=== PATIENT | female | born 1980 | race Caucasian/White ===

== ENCOUNTER → 2019-06-24 | Outpatient (CLI) | payer OTHER | LOC: M.RAD 09:00 | DX: Z12.31 Encounter for screening mammogram for malignant neoplasm of breast (principal) ==

== ENCOUNTER → 2019-07-01 | Outpatient (CLI) | payer OTHER ==
--- NOTE | 2019-07-05 17:06 | PATH ---
[address] [address] PATHOLOGY RPT PROCEDURE Name: LEXII AYOUB Room: [facility] Latrice.Martita.#: [id number] Admission: 07/01/19 Date of : 76 Discharge: Report #: [id number] Path Case #: [id number] [facility] Accession Number: [id number] . 01 Material submitted: . breast - RIGHT BREAST MASS, 9:30, 5CFN. Modifiers: right, 9:00 . 01 Clinical history: . Right breast mass, 9:30 o'clock, 5 cm from nipple 1.20 x 1.58 x 1.51 cm . 02 Diagnosis: Right breast mass, 9:30, 5 cm from nipple, image guided core biopsy: - INFILTRATING LOBULAR CARCINOMA, INTERMEDIATE GRADE, SPANNING 13 MM ASSOCIATED WITH LOBULAR CARCINOMA IN SITU (LCIS), LOW GRADE. SEE COMMENT. . (EMILY:pit; 07/05/2019) QTP/07/05/2019 . 02 Comment: Specimen type: Image guided core biopsy Tumor site: Right breast, 9:30, 5 cm from nipple Tumor quantitation: Approximately 75% of submitted tissues Histologic type: Lobular carcinoma Histologic grade: Intermediate (II of III) Tubules, nuclei and mitoses: 3, 2, 1 LVSI: Not identified Microcalcifications: Identified in non-neoplastic tissues Markers: Breast tumor profile pending Block: A3 . The tumor infiltrates predominantly as nests with scattered areas of more classic lobular infiltration of single cells and "Australian filing", highlighted by properly controlled keratin AE1/AE3 stain performed on A1. An E-cadherin IHC also performed on A1 shows the infiltrating tumor cells as well as LCIS to be negative. No ductal carcinoma in situ is seen. Breast tumor profile studies are pending on A3 and will be the subject of an addendum report. Reviewed with Dr. Max Vazquez who agrees with the diagnosis. Sharron Maria ([facility] Breast Navigator) notified at approximately 1045 on 07/05/2019. (EMILY:pit; 07/05/2019) . 02 Electronically signed: . Carl Adorno MD, Pathologist NPI- [id number] . 01 Gross description: . The specimen is received in formalin, labeled "Lexii Ayoub, [place] [address] PATHOLOGY RPT PROCEDURE Name: LEXII AYOUB Room: [facility]#: [id number] Admission: 07/01/19 Date of : 76 Discharge: Report #: [id number] Path Case #: [id number] mass BX", are several fibrofatty cores and its fragments measuring 2.7 x 2.4 x 0.8 cm in aggregate. The specimen is entirely submitted in A1-A3. Specimen excised at: 1157 on 07/01/19, placed in formalin at: 1201 on 07/01/19, formalin exposure: Approximately 11 hours and 39 minutes (SWS; 07/01/2019) SHS/ . 02 Pathologist provided ICD-10: C50.911, D05.11 . 02 CPT . 958569, Z69432, L80160 Specimen Comment: A courtesy copy of this report has been sent to Specimen Comment: [phone], , , . Specimen Comment: Report sent to DR LEIJA,DR HER,DR LOYD / DR MARIA Performed at: 01 [facility] [address], [place], [place] [id number] MD Francisco Daugherty MD Phone: [phone] Performed at: 02 [facility] [address], [place], [place] [id number] MD Carl Adorno MD Phone: [phone]
== END | disposition home or self-care (01) ==
LOC: M.ULTRA 09:26
DX: C50.911 Malignant neoplasm of unspecified site of right female breast (principal)

== ENCOUNTER → 2019-07-13 | Outpatient (CLI) | payer OTHER | LOC: M.MRI 16:08 | DX: N63.11 Unspecified lump in the right breast, upper outer quadrant (principal); D05.01 Lobular carcinoma in situ of right breast ==

== ENCOUNTER → 2019-08-03 | Day surgery (SDC) | payer OTHER ==
[~2019-08-03] MED LIST: NORCO 5-325 TA1 EAC1 PO
[2019-08-03 06:36] LABS: HEMATOCRIT 40.6 % (37.0-47.0); HEMOGLOBIN 13.6 gm/dL (12.0-15.0)
--- NOTE | 2019-08-09 17:06 | PATH ---
[address] [address] PATHOLOGY RPT PROCEDURE Name: LEXII AYOUB Room: [facility].#: [id number] Admission: 08/03/19 Date of : 76 Discharge: Report #: [id number] Path Case #: [id number] [facility] Accession Number: [id number] . 01 Material submitted: . PART A: breast - RIGHT BREAST CANCER; LONG LATERAL, SHORT SUPERIOR, DOUBLE DEEP. Modifiers: right PART B: breast - RIGHT BREAST NEW MEDIAL MARGIN; STITCH JOSÉ NEW MARGIN. Modifiers: right, medial PART C: breast - RIGHT BREAST NEW INFERIOR MARGIN; STITCH JOSÉ NEW MARGIN. Modifiers: right, inferior PART D: breast - RIGHT BREAST NEW LATERAL MARGIN; STITCH JOSÉ NEW MARGIN. Modifiers: right, superior PART E: breast - RIGHT BREAST NEW SUPERIOR MARGIN; STITCH JOSÉ NEW MARGIN. Modifiers: right, superior PART F: breast - RIGHT BREAST NEW POSTERIOR MARGIN; STITCH JOSÉ NEW MARGIN. Modifiers: right, posterior PART G: breast - RIGHT BREAST NEW ANTERIOR MARGIN; STITCH JOSÉ NEW MARGIN. Modifiers: right, anterior PART H: lymph node - RIGHT AXILLARY LYMPH NODE - NOT HOT, NOT BLUE. Modifiers: right, axillary tail PART I: lymph node - RIGHT AXILLARY SENTINEL NODE #1-HOT,BLUE, [address]. Modifiers: right, axillary tail PART J: lymph node - RIGHT AXILLARY SENTINEL NODE #2-HOT,NOT BLUE, [address]. Modifiers: right, axillary tail PART K: lymph node - RIGHT AXILLARY SENTINEL NODE #3-NOT HOT,BLUE. Modifiers: right, axillary tail PART L: lymph node - RIGHT AXILLARY SENTINEL NODE #4 - HOT, BLUE - TOO HIGH TO COUNT. Modifiers: right . 01 Clinical history: . Malignant neoplasm of upper outer quadrant of right female breast . 02 Diagnosis: A. Right breast cancer: - INFILTRATING LOBULAR CARCINOMA, INTERMEDIATE GRADE, SPANNING 20 MM, ADJACENT TO CHANGES OF PRIOR BIOPSY (INCLUDING METALLIC CLIP), WITH ALL MARGINS FREE OF INVOLVEMENT AND CLOSEST (SUPERIOR NEAR DEEP), 2 MM AWAY. SEE COMMENT. . B. Right breast new medial margin: - Benign breast tissue, negative for atypia. . C. Right breast new inferior margin: - Benign breast tissue with usual ductal epithelial hyperplasia and cystic apocrine change, negative for atypia. . D. Right breast new lateral margin: - Benign breast tissue, negative [place] [address] PATHOLOGY RPT PROCEDURE Name: LEXII AYOUB Room: [facility] M.R.#: [id number] Admission: 08/03/19 Date of : 76 Discharge: Report #: [id number] Path Case #: [id number] . E. Right breast new superior margin: - Benign breast tissue, negative for atypia. See comment. . F. Right breast new posterior margin: - Benign breast tissue with focal atypical lobular hyperplasia. . G. Right breast new anterior margin: - Benign breast tissue with usual ductal epithelial hyperplasia, negative for atypia. . H. Right axillary node (not hot, not blue): - MICROMETASTASIS OF LOBULAR CARCINOMA INVOLVING ONE LYMPH NODE. SEE COMMENT. . I. Right axillary sentinel node #1 (hot, blue, [address]): - MICROMETASTASIS OF LOBULAR CARCINOMA INVOLVING ONE OF THREE LYMPH NODES. SEE COMMENT. . J. Right axillary sentinel node #2 (hot, not blue, [address]): - One benign lymph node. See comment. . K. Right axillary sentinel node #3 (not hot, blue): - Benign fat and prominent blood vessel without lymph node identified. See comment. . L. Right axillary sentinel node #4 (hot, blue, too high to count): - One benign lymph node. See comment. (EMILY:[facility]; 08/09/2019) [facility] 08/09/2019 0739 Local . 02 Comment: Surgical Pathology Cancer Case Summary Protocol posting date: November 2017 . INVASIVE CARCINOMA OF THE BREAST: Specimen Identification Procedure ___ Not specified Specimen Laterality ___ Right + Tumor Site: Invasive Carcinoma + ___ Not specified Tumor Size ___ Greatest dimension of largest invasive focus >1 mm: 20 mm + Additional dimensions: 10 x 8 mm Histologic Type ___ Invasive lobular carcinoma [address] [address] PATHOLOGY RPT PROCEDURE Name: LEXII AYOUB Room: [facility]#: [id number] Admission: 08/03/19 Date of : 76 Discharge: Report #: [id number] Path Case #: [id number] Histologic Grade (Adrienne Histologic Score) Glandular (Acinar)/Tubular Differentiation ___ Score 3 (<10% of tumor area forming glandular/tubular structures) Nuclear Pleomorphism ___ Score 2 (cells larger than normal with open vesicular nuclei, visible nucleoli, and moderate variability in both size and shape) Mitotic Rate ___ Score 1 (< or = 3 mitoses per mm2) Overall Grade ___ Grade 2 (scores of 6 or 7) + Tumor Focality + ___ Single focus of invasive carcinoma Ductal Carcinoma In Situ (DCIS) ___ Not identified + Lobular Carcinoma In Situ (LCIS) + ___ Present Margins Invasive Carcinoma Margins ___ Uninvolved by invasive carcinoma Distance from closest margin: 10 mm (specimen A + specimen E - see comment) Specify closest margin: Superior near deep DCIS Margins ___ No DCIS in specimen Regional Lymph Nodes ___ Involved by tumor cells Number of Lymph Nodes with Micrometastases (>0.2 mm to 2 mm and/or >200 cells): 2 + Size of Largest Metastatic Deposit: 5 mm in dispersed pattern + Extranodal Extension: + ___ Not identified Number of Lymph Nodes Examined: 6 Number of [place] Nodes Examined: 5 Treatment Effect ___ No known presurgical therapy + Lymphovascular Invasion + ___ Not identified + Dermal Lymphovascular Invasion + ___ No skin present . PATHOLOGIC STAGE CLASSIFICATION (pTNM, AJCC 8th EDITION) Primary Tumor (Invasive Carcinoma) (pT) ___ pT1c: Tumor >10 mm but < or = 20 mm in greatest dimension Regional Lymph Nodes (pN) Modifier ___ (sn): [place] node(s) evaluated. Category (pN) ___ pN1mi: Micrometastases (approximately 200 cells, larger than 0.2 mm, but none larger than 2.0 mm) [place] [address] PATHOLOGY RPT PROCEDURE Name: LEXII AYOUB Room: [facility].#: [id number] Admission: 08/03/19 Date of : 76 Discharge: Report #: [id number] Path Case #: [id number] + Ancillary Studies Estrogen receptor 95%, progesterone receptor 90%, Her2 1+/not over expressed, Ki-67 15% ([id number] A3) + Microcalcifications + ___ Identified in non-neoplastic tissue + Clinical History + The current clinical/radiologic breast findings for which this surgery is performed include: + ___ Previous right breast mass 9:30, 5 cm from nipple image guided core biopsy showing infiltrating lobular carcinoma, intermediate grade, spanning 13 mm associated with lobular carcinoma in situ, low-grade ([id number]). . The closest final approach to a surgical margin (superior near posterior) is given as 10 mm in the synoptic data based on its approach in the specimen A sample plus the additional right breast new superior marginal tissue (E). Properly controlled keratin AE1/AE3 stains are performed on each of H1, I1, J1, K1, and L1, and in both specimen H and I, there is a dispersed pattern of metastatic tumor cells confined to both lymph nodes and spanning 4 mm in H and 5 mm in I. Classification of both of these foci are debatable to instead represent macrometastases (in which it would be staged as pN1a), however they are classified as micrometastases because of the dispersed patterns. . A8, H1, and I1 reviewed with Dr. Melly Donovan who agrees with the diagnosis. . (EMILY:pit; 08/09/2019) . 02 Electronically signed: . Carl Adorno MD, Pathologist NPI- [id number] . 01 Gross description: . A. The specimen is received in formalin, labeled "Lexii Ayoub, right breast cancer; long lateral, short superior, double deep", is a 14 g, oriented, fibroadipose tissue with sutures: long = lateral, short = superior and double = deep. There is a needle wire in situ from inferior/deep and protruding out of lateral/superior aspect. The specimen measures medial to lateral = 5.0 cm, superior to inferior = 2.6 cm and superficial to deep = 2.8 cm. The specimen is inked as follows: Superior = red, inferior = green, medial = orange, lateral = yellow, superficial = blue and deep = black. The specimen is a serially sectioned from medial to lateral into 14 slices. (Slice #1 = medial and slice #14 = lateral margins) to reveal a fairly circumscribed whittaker-white firm mass approximately measuring 2.0 x 1.0 x 0.8 cm (slice #6 to slice #10) and a metallic marker in slice #8. The mass is surrounded by whittaker-white fibrous tissue. The mass is 0.3 cm away from superficial (slice #7), 0.2 cm from deep (slice #8), abuts the superior (slice #7), 0.2 cm [place] [address] PATHOLOGY RPT PROCEDURE Name: LEXII AYOUB Room: [facility].R.#: [id number] Admission: 08/03/19 Date of : 76 Discharge: Report #: [id number] Path Case #: [id number] (slice 9) and greater than 1.5 cm from medial and lateral margins. The remaining parenchyma is yellow and fatty, with whittaker-white fibrous tissue in the ratio of approximately 60:40. Entirely submitted as follows: A1. Slice #1, medial margin, perpendicular sectioned. A2-A3. Slice #2 and slice #3 respectively. A4. Slice #4, medial most aspect of fibrous tissue. A5. Slice #5, uninvolved slice adjacent to mass on medial aspect. A6. Slice #6, medial most aspect of mass. A7. Slice #7, mass to closest superior and superficial margins. A8. Slice #8, mass to closest deep margin and slice with metallic marker. A9. Slice #9, mass. A10. Slice #10, mass to closest inferior margin and lateral most aspect of mass and fibrous tissue. A11. Slice #11, uninvolved slice adjacent to mass on the lateral aspect. A12-A13. Slice #12 and slice #13, respectively. A14. Slice #14, lateral margin, perpendicular sectioned. . Specimen excised at: 1055 on 08/03/19, placed in formalin at: 1118 on 08/03/19, formalin exposure: Approximately 36 hours and at 12 minutes. . B. The specimen is received in formalin, labeled "Valerie, Lexii, right breast new medial margin, stitch josé new margin", is an oriented yellow lobulated adipose tissue measuring 3.0 x 1.8 x 0.7 cm with a suture designated as new medial margin. The new margin is inked blue and the specimen is serially sectioned perpendicular to the new margin to show a predominantly yellow lobulated cut surface. The specimen is entirely submitted in B1-B3. Specimen excised at: 1104 on 08/03/19, placed in formalin at: 1107 on 08/03/19, formalin exposure: Approximately 36 hours and 23 minutes. . C. The specimen is received in formalin, labeled "Lexii Ayoub, right breast new inferior margin, stitch josé new margin", is an oriented yellow lobulated adipose tissue measuring 2.2 x 1.4 x 0.7 cm with a suture designated as new inferior margin. The new margin is inked blue and the specimen is serially sectioned perpendicular to the new margin to show a yellow lobulated cut surface. The specimen is entirely submitted in C1-C2. Specimen excised at: 1105 on 08/03/19, placed in formalin at: 1107 on 08/03/19, formalin exposure: Approximately 36 hours and 23 minutes. . D. The specimen is received in formalin, labeled "Lexii Ayoub, right breast new lateral margin, stitch josé new margin", is an oriented yellow lobulated adipose tissue measuring 2.3 x 1.7 x 1.0 cm and with a suture designated as new lateral margin. The new margin is inked blue and the specimen is serially sectioned perpendicular to the new margin to show a yellow lobulated cut surface. The specimen is entirely submitted in D1-D3. Specimen excised at: 1106 on 08/03/19, placed in formalin at: 1107 [place] [address] PATHOLOGY RPT PROCEDURE Name: LEXII AYOUB Room: [facility]#: [id number] Admission: 08/03/19 Date of : 76 Discharge: Report #: [id number] Path Case #: [id number] 08/03/19, formalin exposure: Approximately 36 hours and 23 minutes. . E. The specimen is received in formalin, labeled "Lexii Ayoub, right breast new superior margin, stitch josé new margin", is an oriented yellow lobulated adipose tissue measuring 2.6 x 1.3 x 0.8 cm with a suture designated as new superior margin. The new margin is inked blue and the specimen is serially sectioned perpendicular to the new margin to show a yellow lobulated cut surface. The specimen is entirely submitted in E1-E2. Specimen excised at: 1107 on 08/03/19, placed in formalin at: 1107 on 08/03/19, formalin exposure: Approximately 36 hours and 23 minutes. . F. The specimen is received in formalin, labeled "Lexii Ayoub, right breast new posterior margin, stitch josé new margin", is an oriented yellow lobulated adipose tissue measuring 2.5 x 1.8 x 0.8 cm with a suture designated as new posterior margin. The new margin is inked blue and the specimen is serially sectioned perpendicular to the new margin to show a yellow lobulated cut surface. The specimen is entirely submitted in F1-F3. Specimen excised at: 1108 on 08/03/19, placed in formalin at: 1108 on 08/03/19, formalin exposure: Approximately 36 hours and 22 minutes. . G. The specimen is received in formalin, labeled "Lexii Ayoub, right breast new anterior margin, stitch josé new margin", is an oriented yellow lobulated adipose tissue measuring 2.0 x 1.5 x 0.7 cm with a suture designated as new anterior margin. The new margin is inked blue and the specimen is serially sectioned perpendicular to the new margin to show a pink to whittaker fibrous cut surface. The specimen is entirely submitted in G1-G2. Specimen excised at: 1109 on 08/03/19, placed in formalin at: 1109 on 08/03/19, formalin exposure: Approximately 36 hours and 21 minutes. . H. The specimen is received in formalin, labeled "Lexii Ayoub, right axillary lymph node-not hot, not blue", is a yellow lobulated adipose tissue consisting of a black suture and measuring 2.0 x 1.6 x 0.7 cm. The specimen is serially sectioned to reveal a ferrari-pink, rubbery lymph node measuring 1.8 x 1.0 x 0.5 cm. The specimen is entirely submitted in H1-H2. . I. The specimen is received in formalin, labeled "Lexii Ayoub, right axillary sentinel node #1, hot, blue, [address]", is a yellow lobulated adipose tissue measuring 2.5 x 2.0 x 1.0 cm. Sectioning reveals three possible lymph node candidates ranging from 0.5 cm up to 1.3 cm in greatest dimension. The largest lymph node cut surface shows a pale green-blue dye area. The specimen is entirely submitted as follows: I1. Largest lymph node, serially sectioned. I2. Two lymph nodes candidates, bisected. (One inked black) I3. Remaining adipose tissue for possible lymph nodes candidates[place] [address] PATHOLOGY RPT PROCEDURE Name: LEXII AYOUB Room: [facility]#: [id number] Admission: 08/03/19 Date of : 76 Discharge: Report #: [id number] Path Case #: [id number] J. The specimen is received in formalin, labeled "Lexii Ayoub, right axillary sentinel lymph node #2 hot, not blue, [address]", is a yellow lobulated adipose tissue measuring 2.9 x 1.5 x 1.0 cm and includes a black suture. Sectioning reveals two possible lymph nodes candidates ranging from 0.1 cm up to 1.4 cm in greatest dimension. The cut surface of the largest lymph node is dark brown. The specimen is entirely submitted as follows: J1. Largest lymph node, serially sectioned. J2. Possible lymph nodes candidates intact. J3. Remaining adipose tissue for possible lymph nodes candidates. . K. The specimen is received in formalin, labeled "Lexii Ayoub, right axillary sentinel lymph node #3, not hot, blue", is a yellow lobulated adipose tissue measuring 2.7 x 2.0 x 1.2 cm. Sectioning reveals a 1.0 x 0.2 x 0.1 cm cylindrical blue-purple possible vascular segment. No discrete lymph nodes are identified. The specimen is entirely submitted as follows: K1. Possible vascular segment. K2-K4. Remaining adipose tissue for possible lymph nodes candidates. . L. The specimen is received in formalin, labeled "Lexii Ayoub, right axillary sentinel lymph node #4, hot, blue-too high to count", is a yellow lobulated adipose tissue measuring 1.8 x 1.5 x 1.2 cm and includes a black suture. Sectioning reveals a 1.6 x 1.2 x 0.8 cm possible lymph nodes candidates with a ferrari cut surface. The specimen is entirely submitted in L1. ([facility]; 08/04/2019) [facility] 08/09/2019 03 Local . 02 Microscopic: . . . 02 Pathologist provided ICD-10: C50.911, D05.11, C77.3 . 02 CPT . 394298, 693573, 898848, 885468, 538132, 154706, 296567, 307938, 788717, 006611, 006677, T16592 Specimen Comment: A courtesy copy of this report has been sent to Specimen Comment: [phone], . Specimen Comment: Report sent to / DR LOYD Performed at: 01 [facility] [address] [place] [address] [address], [place], [place] [id number] MD Francisco Daugherty MD Phone: [phone] Performed at: 02 [address] [address] [address], [place] [id number] MD Carl Adorno MD Phone: [phone]
--- NOTE | 2019-08-15 11:19 | OP ---
[address] [address] OPERATIVE REPORT Name: LOIS AYOUB Room: [facility]#: [id number] Admission: 08/03/19 Attend Phys: Delphine Dietrich MD Discharge: Date of : 76 Report #: [id number] THIS REPORT FOR: //name// CC: Dev Dietrcih DATE OF SERVICE: 08/03/2019 PREOPERATIVE DIAGNOSIS: Malignant neoplasm, upper outer quadrant, right female breast. POSTOPERATIVE DIAGNOSES: Malignant neoplasm, upper outer quadrant, right female breast plus acquired deformity, right breast. PROCEDURES: 1. Injection of blue dye. 2. Right breast needle localized lumpectomy. 3. Right breast reconstruction using a 2 x 3 BioZorb. 4. Right axillary sentinel lymph node biopsy. SURGEON: Delphine Dietrich MD CODING CLERKS SUPERVISOR: None. ANESTHESIA: General anesthesia. ESTIMATED BLOOD LOSS: 5 mL. COMPLICATIONS: None. SPECIMENS: 1. Right breast cancer. 2. Right breast new medial margin, stitch maxwell new margin. 3. Right breast new inferior margin. 4. Right breast new lateral margin. 5. Right breast new superior margin. 6. Right breast new posterior margin. 7. Right breast new anterior margin. 8. Right axillary lymph node, not hot, not blue. 9. Right axillary sentinel lymph node #1, hot, blue, 12384. 10. Right axillary sentinel lymph node #2, hot, not blue, 65[address]. 11. Right axillary sentinel lymph node #3, blue, not hot. 12. Right axillary sentinel lymph node #4, hot, blue, too high to count. FINDINGS: Clip and lesion within the mammographic specimen. Other incision 5 cm in length, 14 cm from nipple at the 10 [place] [address] OPERATIVE REPORT Name: LOIS AYOUB Room: [facility]#: [id number] Admission: 08/03/19 Attend Phys: Delphine Dietrich MD Discharge: Date of : 76 Report #: [id number] IMPLANTS: 2 x 3 BioZorb. INDICATIONS: The patient is a 38-year-old female with imaging on 06/24/2019, 07/01/2019 showing a 1.6 cm irregular hypoechoic mass at the 9:30 right breast 5 cm from nipple. Normal appearing axillary lymph nodes. Biopsy on 07/01/2019 showed grade 1 invasive lobular carcinoma. Receptors ER/PA positive, HER-2 negative and Ki-67 of 15%. She subsequently underwent MRI on 07/13/2019, which confirmed the primary mass only. No other mass or no other enhancement noted and a normal-appearing right axillary lymph nodes. She was interested in proceeding with breast conservation if possible. We did discuss the option for a plastics referral for oncoplastic reduction or symmetry procedure. She declined this as well. She desired to proceed with a lumpectomy and sentinel node biopsy. Risks and benefits for this were discussed with the patient and delineated in the H and P and she agreed to proceed. DESCRIPTION OF PROCEDURE: The patient was brought to the operating room after informed consent had been obtained, she was placed under general anesthesia in the supine position with the right arm extended. Preoperatively, she had been taken to ultrasound for wire localization of the mass followed by Nuclear Medicine for injection for the sentinel node portion of the case. The right breast was examined. A 5 mL of Lymphazurin blue was injected in intradermal and subdermal location in the upper outer periareolar region of the right breast. The right breast and axilla were then prepped and draped in normal sterile manner. Prior to all skin incisions, a combination of 1% lidocaine plain and 0.5% Marcaine with epinephrine was used. A lateral breast skin incision was made with a knife. This was deepened into the subcutaneous tissues using the Bovie electrocautery. A path was created medially in the breast in the superficial mastectomy plane. Once I encountered the wire, I began to deeper for dissection. The Bovie electrocautery was used to excise a lump of tissue surrounding the pathway of the wire. Once completely removed, it was labeled for orientation purposes and placed in the mammographic specimen tray. Mammogram confirmed the biopsy clip was indeed within the mammographic specimen. I then copiously irrigated the wound bed, was noted to be adequately hemostatic. Attention was then turned to excision of margins. The region of the medial margin was grasped with an Allis clamp and Bovie electrocautery was used to excise a thin rim of tissue to encompass the new medial margin. This was then repeated in the inferior lateral superior, posterior and anterior margins. All of these were labeled for orientation purposes and handed off for permanent specimen. The BioZorb sizers were then obtained. The 2 x 3 BioZorb was an adequate fit for the lumpectomy bed. Therefore, the 2 x 3 BioZorb package was then opened onto the field. I then placed a four stay sutures of 3-0 PDS in 4 quadrants of the lumpectomy bed. I then changed into clean sterile gloves opened the box for the BioZorb and removed the BioZorb from the box and placed within the lumpectomy cavity, was then secured in place with the four previously placed stay sutures. This was fairly deep within the parenchyma of [address] [address] OPERATIVE REPORT Name: MEGALOIS RODRIGUEZ Room: [facility]#: [id number] Admission: 08/03/19 Attend Phys: Delphine Dietrich MD Discharge: Date of : 78 Report #: [id number] the breast and had adequate coverage circumferentially. I did reapproximate the deeper or the lateral tissues to surround the BioZorb with interrupted sutures of 3-0 Vicryl dyed. The deep dermal layers were then closed with interrupted 3-0 Vicryl sutures and skin was closed with 4-0 Monocryl in a subcuticular manner. Attention was then turned to the axilla. The hot site of highest activity on the axilla was marked out with a marking pen. A skin incision was made in this region with a knife. This was deepened into the subcutaneous tissues using the Bovie electrocautery. This was a very tedious dissection because the patient had a very bulky axilla. A Weitlaner retractor was placed. The axillary fascia was divided and the [place] probe was used to direct dissection fairly superficially. There was a very large fatty lymph node right below the axillary fascia and there seemed to be radiotracer uptake associated with this, so it was removed with a combination of Ligaclip and Bovie electrocautery dissection. Once completely removed, counts were obtained and this actually had no radiotracer uptake. It also had no blue dye uptake. The axilla was again interrogated. There was an area of radiotracer noted. Dissection was performed in this region. It did reveal a lymph node that had a blue dye uptake. This was isolated with the assistance of the LigaSure device. Once completely removed, counts were obtained and this was sent off as sentinel node #1. Attention was redirected to the axilla. There were additional high counts noted. I found an additional lymph node that did not have blue dye uptake. This was isolated using assistance of the LigaSure device. Once completely removed, counts were obtained and this was sent as sentinel node #2. Attention was redirected to the axilla. There seemed to be an area of additional high counts. Dissection in this region revealed another very large fatty lymph node. This was isolated with the assistance of the LigaSure device, had some associated blue lymphatics, but upon complete removal, had no radiotracer uptake. Therefore, this was sent as sentinel node #3. Attention was redirected to the axilla. There was persistent high count very superficial in the axilla. I did find a superficial lymph node in this area that I did not think was blue initially. This was isolated with the assistance of the LigaSure device. Once completely removed, it did seem to have a slight blue tint, counts were obtained and this was too high to count, therefore greater than 100,000 for a 10-second count. The axilla was again copiously irrigated with normal saline. It was again examined and interrogated with the Sherine probe. There were no additional high counts noted. The patient tolerated the procedure well. A single interrupted suture of 3-0 Vicryl was used to reapproximate the axillary fascia. The deep dermal layers were closed with interrupted 3-0 Vicryl sutures. Skin was closed with 4-0 Monocryl in subcuticular manner. Both wounds were then dressed with Dermabond dressing. The patient tolerated the procedure well. Sponge, lap and needle counts were correct x 2 at the end of procedure. She was transferred to recovery in stable condition. <ELECTRONICALLY SIGNED> By: Delphine Dietrich MD 08/15/19 1119 1315 [id number] Dietrich MD /nt
== END | disposition home or self-care (01) ==
LOC: M.RAD 07-11 12:43 → M.SUR 06:04 → M.RAD 08:00 → EDSTATUS 08:00
PROVIDERS: Surgery
DX: C50.411 Malignant neoplasm of upper-outer quadrant of right female breast (principal); C77.3 Secondary and unspecified malignant neoplasm of axilla and upper limb lymph nodes; N64.89 Other specified disorders of breast

== ENCOUNTER → 2019-11-04 | Outpatient (CLI) | payer OTHER ==
--- NOTE | ~2019-11-04 | ONC ---
[address] [address] RADIATION ONCOLOGY NOTE Name: LOIS AYOUB Room: [facility]#: [id number] Admission: 11/04/19 Attend Phys: Ismael Schaffer MD Discharge: Date of : 76 Report #: [id number] THIS REPORT FOR: //name// CC: Ismael [facility] DATE OF SERVICE: 11/04/2019 RADIOLOGY ONCOLOGY FOLLOWUP NOTE REFERRING PHYSICIANS: Include Dr. Delphine Dietrich, also Dr. Arden Dykes and Dr. Shearer. PRIMARY SITE AND HISTOPATHOLOGY: The patient received radiation therapy as part of breast conservation therapy for initial T1c N1mi M0 right breast cancer that was estrogen receptor positive, progesterone receptor positive and HER2/tres negative and the patient completed radiation therapy to the right breast and regional lymph nodes on 10/19/2019. INTERVAL NOTE: The patient is still using Silvadene for skin care. She still has some mild erythema of the skin in the treated areas that is improving. She denied having any nipple discharge from the right breast or left breast. She denied having any palpable masses involving the right breast or left breast. She denied having any upper extremity edema. SOCIAL HISTORY: Cigarettes -- The patient does not smoke cigarettes. REVIEW OF SYSTEMS: MUSCULOSKELETAL: She has excellent range of motion in upper extremities. RESPIRATORY: Breathing, she is not short of breath. Her performance status is 100%. PHYSICAL EXAMINATION: With my nurse, Clary Quintanilla, present: VITAL SIGNS: Weight is 251.4 pounds, blood pressure 118/77, oxygen saturation 96%, pulse 75, respirations 18. LYMPH NODES: She had no palpable cervical or supraclavicular lymphadenopathy. HEART: Had a regular rate and rhythm without murmur. LUNGS: Clear to auscultation. BREASTS: The skin on the right breast area still has some mild erythema, just a small area of dry desquamation and some erythema in the right supraclavicular area that all appears to be improving. There were no suspicious palpable masses involving the right breast. There were no suspicious palpable masses involving the left breast. CARDIOVASCULAR: Regular rate and rhythm without murmur. LUNGS: Clear to auscultation. EXTREMITIES: Had no clubbing, [place] [address] RADIATION ONCOLOGY NOTE Name: LOIS AYOUB Room: [facility]#: [id number] Admission: 11/04/19 Attend Phys: Ismael Schaffer MD Discharge: Date of : 76 Report #: [id number] ASSESSMENT AND PLAN: 1. History of breast cancer. There is no evidence of breast cancer at this time. The patient still has some skin reaction from her radiation therapy that is improving. She continues to use Silvadene. She is going to be seeing her surgeon, Dr. Dietrich next week. She indicated that her medical oncologist, Dr. Dykes has prescribed tamoxifen for her, so she started that and she was asked to follow up with me in about 3 weeks to again check on her skin at that time. 2. Arthritic pain. She takes ibuprofen as needed for arthritic pain. 3. Skin reaction. It is improving with Silvadene. The patient was told to continue using Silvadene and then follow up with me in about 3 weeks. Thank you for allowing me to participate in the care of this patient. By: 1049 [id number] Schaffer MD /doc
== END ==
LOC: M.RTH 05:14
DX: Z08 Encounter for follow-up examination after completed treatment for malignant neoplasm (principal); Z85.3 Personal history of malignant neoplasm of breast

== ENCOUNTER → 2019-12-23 | Outpatient (CLI) | payer OTHER | LOC: M.RAD 12:40 | DX: R92.8 Other abnormal and inconclusive findings on diagnostic imaging of breast (principal) ==

== ENCOUNTER → 2019-12-30 | Outpatient (CLI) | payer OTHER ==
--- NOTE | 2019-12-31 17:14 | ONC ---
[place] [address] RADIATION ONCOLOGY NOTE Name: LOIS AYOUB Room: [facility]#: [id number] Admission: 12/30/19 Attend Phys: Ismael Schaffer MD Discharge: Date of : 76 Report #: [id number] THIS REPORT FOR: //name// CC: Ismael Dietrich MD DATE OF SERVICE: 12/30/2019 RADIATION ONCOLOGY FOLLOWUP NOTE REFERRING PHYSICIANS: Delphine Dietrich MD; Yasmany Shearer MD; Arden Dykes MD [facility] phone is [phone]. PRIMARY SITE AND HISTOPATHOLOGY: The patient received radiation therapy as part of breast conservation therapy for a T1c N1mi M0 right breast cancer. The breast cancer was estrogen receptor positive, progesterone receptor positive, and HER2/tres negative. The patient completed radiation therapy to the right breast and regional lymph nodes on 10/19/2019. INTERVAL NOTE: The patient's skin has healed up. She has some mild hyperpigmentation of the skin. She feels like she does have some skin edema involving the right breast. She denied having any lymphedema of either the right or left upper extremity. She has good range of motion of the right upper extremity, but she still has some mild discomfort involving the shoulder. She denied having any bleeding from the right nipple or the left nipple. She denied having any suspicious palpable masses involving the right breast or left breast. SOCIAL HISTORY: Cigarettes: The patient does not smoke cigarettes. REVIEW OF SYSTEMS: MUSCULOSKELETAL: She had excellent range of motion in her upper extremities. RESPIRATORY: She was not short of breath. PERFORMANCE STATUS: Her performance status was 100%. PHYSICAL EXAMINATION: With my nurse, Clary Quintanilla, present: VITAL SIGNS: The patient weighed 255.4 pounds on 12/30/2019 and 251.4 pounds on 11/04/2019. On 12/30/2019 blood pressure was 126/82, pulse 79, oxygen saturation 95%, respirations 18. LYMPH NODES: She had no palpable cervical or supraclavicular [place] [address] RADIATION ONCOLOGY NOTE Name: LOIS AYOUB Room: [facility]#: [id number] Admission: 12/30/19 Attend Phys: Ismael Schaffer MD Discharge: Date of : 76 Report #: [id number] HEART: Had a regular rate and rhythm without murmur. LUNGS: were clear to auscultation. SKIN: The patient does have some skin edema and thickening of the right breast with some mild hyperpigmentation. She did look like she scratched a little bit of the area around the right supraclavicular areaand she may have a small furuncle in that area. BREASTS: Right breast had no suspicious palpable masses. Left breast had no suspicious palpable masses. EXTREMITIES: Had no clubbing, cyanosis or edema. LABORATORY DATA: The patient had lab work on 12/23/2019, hemoglobin was 13.1, platelets were 339,000, white blood cells were 4.9. Sodium 140, potassium 4.3, BUN was 13, creatinine 0.74. RADIOLOGIC DATA: The patient had a mammogram performed at [facility] on 12/23/2019 and it noted was right breast skin thickening from radiation changes and they recommended a 6-month followup mammogram. ASSESSMENT AND PLAN: 1. History of breast cancer- There is no evidence of breast cancer at this time. A bilateral mammogram was ordered in about 6 months and the patient was asked to schedule a follow up appointment to see me afterwards. The patient has an appointment to see her medical oncologist, Dr. Dykes on 02/16/2020. Dr. Dykes prescribes tamoxifen and Zoladex for the patient. 2. Small furuncle in the right supraclavicular area- The patient was given a prescription for mupirocin cream to use for about a week or two for that issue and she was told to use a skin moisturizer in the treated area to avoid pruritus so she does not scratch her skin. 3. Skin edema of the right breast- The patient will be sent to Physical Therapy to manage that issue. 4. Mild arthritic pain in the right shoulder- The patient was sent to Physical Therapy to manage that issue as well. Thank you for allowing me to participate in the care of this patient. <ELECTRONICALLY SIGNED> By: Ismael Schaffer MD 12/31/19 1714 1101 [id number] Schaffer MD /nt
== END ==
LOC: M.RTH 12-16 12:00
DX: Z08 Encounter for follow-up examination after completed treatment for malignant neoplasm (principal); R60.9 Edema, unspecified; M19.011 Primary osteoarthritis, right shoulder; Z85.3 Personal history of malignant neoplasm of breast

== ENCOUNTER → 2020-06-29 | Outpatient (CLI) | payer OTHER | LOC: M.RAD 10:30 | PROVIDERS: ATTEND Internal Medicine Hematology & Oncology | DX: C50.411 Malignant neoplasm of upper-outer quadrant of right female breast (principal); Z17.0 Estrogen receptor positive status [ER+] ==

== ENCOUNTER → 2020-07-06 | Outpatient (CLI) | payer OTHER ==
--- NOTE | ~2020-07-06 | ONC ---
[address] [address] RADIATION ONCOLOGY NOTE Name: LOIS AYOUB Room: [facility]#: [id number] Admission: 07/06/20 Attend Phys: Ismael Schaffer MD Discharge: Date of : 76 Report #: [id number] THIS REPORT FOR: //name// CC: Ismael [facility]dez [facility] DATE OF SERVICE: 07/06/2020 REFERRING PHYSICIANS: 1. Dr. Arden Dykes. 2. Dr. Yasmany Shearer. 3. Dr. Delphine Dietrich. [facility] phone is [phone]. PRIMARY SITE AND HISTOPATHOLOGY: The patient received radiation therapy as part of breast conservation therapy for a T1c N1mi M0 right breast cancer. The breast cancer was estrogen receptor positive, progesterone receptor positive and HER2/tres negative. The patient completed radiation therapy to the right breast and regional lymph nodes on 10/19/2019. INTERVAL NOTE: The patient's skin has healed up. She had some mild hyperpigmentation of the skin. She went to see Physical Therapy for some skin edema to the right breast and that improved significantly. She denied having any lymphedema in the right or left upper extremity. She has good range of motion of her upper extremities. She denied having any bleeding from the right nipple. She denied having any bleeding from the left nipple. She denied having any suspicious palpable masses involving the right breast. She denied having any suspicious palpable masses involving the left breast. Over the last couple of weeks, she did develop a tender area in the right supraclavicular region. Dr. Dykes started her on Keflex. That area is erythematous and tender. SOCIAL HISTORY: Cigarettes -- The patient does not smoke cigarettes. REVIEW OF SYSTEMS: MUSCULOSKELETAL: She had excellent range of motion in her upper extremities. RESPIRATORY: She was not short of breath. PERFORMANCE STATUS: Her performance status was 100%. PHYSICAL EXAMINATION: With a nurse, Clary Quintanilla, present on 07/06/2020: VITAL SIGNS: Weight is 250 pounds. She was 255.4 pounds on 12/30/2019. Blood pressure is 123/84, oxygen saturation 97%, respirations 16, temperature 98.2 degrees Fahrenheit, pulse 72. LYMPH NODES: The patient has no palpable cervical or supraclavicular [place] [address] RADIATION ONCOLOGY NOTE Name: LOIS AYOUB Room: [facility]#: [id number] Admission: 07/06/20 Attend Phys: Ismael Schaffer MD Discharge: Date of : 76 Report #: [id number] HEART: Has a regular rate and rhythm without murmur. LUNGS: Clear to auscultation. SKIN: The patient does have some tender, erythematous area with some skin thickening around the right where the right supraclavicular field was on the medial edge. It has sharp borders medially and superiorly matching what the right supraclavicular field would look like. BREASTS: The right breast has no suspicious palpable masses. Left breast has no suspicious palpable masses. EXTREMITIES: Have no clubbing, cyanosis or edema. RADIOLOGIC DATA: The patient had a unilateral right mammogram on 06/29/2020 which revealed probably benign findings and a short interval followup was recommended. She also had an ultrasound of the chest on 06/29/2020 diagnostic imaging which revealed skin thickening in the right lower neck. She also had a thyroid ultrasound on 06/29/2020 which revealed 2 nodules in the thyroid, one was 1.2 cm x 1 cm x 1 cm and another one was 1.7 cm x 1.3 cm x 1.8 cm. There were 2 discrete thyroid nodules in the left lobe of the thyroid. That area that was irradiated was on right. The left would not have been in the treatment field. ASSESSMENT AND PLAN: 1. History of breast cancer. There is no evidence of breast cancer at this time. The patient is scheduled to see her medical oncologist, Dr. Dykes, on 07/12/2020. She was asked to schedule a followup appointment with me in about 2-3 weeks. 2. Probable radiation recall reaction in the right supraclavicular region. Dr. Dykes started her treatment with Keflex. This has sharp borders corresponding the right supraclavicular field, so very likely it is a recall reaction. She was given a Medrol. She was prescribed a Medrol Dosepak and some triamcinolone cream and then she is scheduled to see Dr. Dykes on 07/12/2020. She was asked to schedule a followup appointment with me in about 2-3 weeks. [address]. Dykes referred the patient to the Ear, Nose, and Throat physician, Dr. Palacios, to manage that issue. In terms of medications, the patient is taking tamoxifen and also is getting Zoladex injection. 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 Thank you for allowing me to participate in the care of this patient. By: 1102 Saniya Schaffer MD /doc
== END ==
LOC: M.RTH 09:45
PROVIDERS: ATTEND Radiology Radiation Oncology
DX: Z08 Encounter for follow-up examination after completed treatment for malignant neoplasm (principal); Z85.3 Personal history of malignant neoplasm of breast; Z92.3 Personal history of irradiation

== ENCOUNTER → 2020-08-03 | Outpatient (CLI) | payer OTHER ==
--- NOTE | 2020-08-05 11:14 | ONC ---
[facility] [address] [place] [address] RADIATION ONCOLOGY NOTE Name: LOIS AYOUB Room: [facility]#: [id number] Admission: 08/03/20 Attend Phys: Ismael Schaffer MD Discharge: Date of : 76 Report #: [id number] THIS REPORT FOR: //name// CC: Ismael Dietrich MD DATE OF SERVICE: 08/03/2020 [facility] phone: [phone] RADIATION ONCOLOGY FOLLOWUP NOTE REFERRING PHYSICIANS: 1. Dr. Shearer. 2. Dr. Jg Palacios. 3. Dr. Arden Dykes. 4. Delphine Dietrich M.D. [facility] phone is [phone] PRIMARY SITE AND HISTOPATHOLOGY: The patient received radiation therapy as part of breast conservation therapy for a T1c N1mi M0 right breast cancer. The breast cancer was estrogen receptor positive, progesterone receptor positive and HER2/tres negative. The patient completed radiation therapy to the right breast and regional lymph nodes on 10/19/2019. INTERVAL NOTE: The patient had 2 rounds of a tapering schedule of steroids for what appeared to be a radiation recall reaction in the right supraclavicular area. The patient indicated that it has resolved after the 2nd round of steroids. She denied having any lymphedema in the right upper extremity or left upper extremity. She had good range of motion of her upper extremities. Previously, she denied having any bleeding from the right nipple. She denied having any bleeding from the left nipple. She denied having any suspicious masses involving the right breast. She denied having any suspicious palpable masses involving the left breast. Her Karnofsky score is 100%. SOCIAL HISTORY: Cigarettes: The patient does not smoke cigarettes. REVIEW OF SYSTEMS: MUSCULOSKELETAL: She had excellent range of motion of her upper extremities. RESPIRATORY: She was not short of breath. MEDICATIONS: At this point are tamoxifen. [place] [address] RADIATION ONCOLOGY NOTE Name: MEGALOISOSBALDO RODRIGUEZ Room: [facility]#: [id number] Admission: 08/03/20 Attend Phys: Ismael Schaffer MD Discharge: Date of : 76 Report #: [id number] PHYSICAL EXAMINATION: VITAL SIGNS: The patient weighed 246.8 pounds on 08/03/2020 and 250 pounds on 07/06/2020. On 08/03/2020, blood pressure 116/86, pulse 73, oxygen saturation 97%, and respirations 18. LYMPH NODES: The patient had no palpable cervical or supraclavicular adenopathy. HEART: Had a regular rate and rhythm without murmur. LUNGS: Clear to auscultation. The patient's recall reaction has resolved. SKIN: Looks normal in that area. At the last examination, just a few weeks ago on 07/06/2020, she had no palpable axillary lymphadenopathy. BREASTS om 07/06/2020: The right breast had no suspicious palpable masses. The left breast had no suspicious palpable masses. EXTREMITIES: Had no clubbing, cyanosis, or edema. LABORATORY DATA: From 12/23/2019, her hemoglobin was 13.1, platelets 329,000, and white blood cell count 4.9. Sodium 140, potassium 4.3, BUN 13, and creatinine 0.74. RADIOLOGIC DATA: The patient has had bilateral mammogram on 12/23/2019, which had probably benign findings. ASSESSMENT AND PLAN: 1. History of breast cancer- There is no evidence of breast cancer at this time. The patient has an appointment with her medical oncologist's nurse practitioner, Meseret Hodge, on 10/12/2020 and she also has an appointment with her medical oncologist, Dr. Dykes, on 01/03/2021. The patient is taking tamoxifen and getting Lupron injections and that is managed by Dr. Dykes. The patient was given a requisition for a bilateral mammogram in 12/2020, and she was asked to schedule a followup appointment to see me afterwards. 2. Radiation recall reaction in the right supraclavicular fossa- has resolved with 2 rounds of steroids. 3. Thyroid nodules. The patient indicated that Dr. Dykes referred her to the ear, nose, and throat physician, Dr. Palacios, to manage that issue. Thank you for allowing me to participate in the care of this patient. <ELECTRONICALLY SIGNED> By: Ismael Schaffer MD 08/05/20 [id number] Schaffer MD /nt
== END ==
LOC: M.RTH 09:00
PROVIDERS: ATTEND Radiology Radiation Oncology
DX: Z08 Encounter for follow-up examination after completed treatment for malignant neoplasm (principal); E04.2 Nontoxic multinodular goiter; Z85.3 Personal history of malignant neoplasm of breast; Z92.3 Personal history of irradiation

== ENCOUNTER → 2021-01-25 | Outpatient (CLI) | payer OTHER | LOC: M.RAD 10:27 | PROVIDERS: ATTEND Radiology Radiation Oncology | DX: R92.8 Other abnormal and inconclusive findings on diagnostic imaging of breast (principal); R92.2 Inconclusive mammogram ==